=== PATIENT | female | born 1940 | race Caucasian/White ===

== ENCOUNTER 2016-10-21 14:27 | Emergency (ER) | payer MEDICARE, MEDICAID ==
[2016-10-21] MEDS ORDERED: OXYCODONE-ACETAMINOPHEN 5-325 MG TABLET PO ONE (15:02)
--- NOTE | 2016-10-21 15:56 | RADIOLOGY REPORT (SQ) ---
EXAM DESCRIPTION: HIP RIGHT AP/LATERAL COMPLETED DATE/TIME: 10/21/2016 3:45 pm REASON FOR STUDY: pain COMPARISON: None. NUMBER OF VIEWS: Two views. TECHNIQUE: AP pelvis and additional frog-leg view of the right hip. LIMITATIONS: None. FINDINGS: MINERALIZATION: Osteopenia. RIGHT HIP: Mild narrowing of the joint space. No significant osteophyte formation. No subchondral c ysts. LEFT HIP: No fracture or dislocation. No worrisome bone lesions. PUBIS AND ISCHIUM: No fracture. PELVIS: No fracture. SACRUM: There is mild sclerosis of the right sacroiliac joint. LOWER LUMBAR SPINE: Mild degenerative disc changes are seen in the lower lumbar spine. SOFT TISSUES: No findings. OTHER: No other significant finding. IMPRESSION: Mild degenerative joint changes in the right hip and in the sacroiliac joint. Mild dege nerative disc changes in the lower lumbar spine. TECHNICAL DOCUMENTATION: JOB ID: [id number] [employer]- All Rights Reserved
--- NOTE | 2016-10-21 16:12 | ER Document Report ---
ED General - General Chief Complaint: Leg Pain Stated Complaint: LEG PAIN Time Seen by Provider: 10/21/16 14:38 Mode of Arrival: Medic Information source: Patient Notes: 76-year-old female presents with complaints of right hip pain. Patient denies any fevers or chills denies any trauma patient notes it hurts when she tries to ambulate TRAVEL OUTSIDE OF THE [place] IN LAST 30 DAYS: No - HPI Onset: Just prior to arrival Onset/Duration: Sudden Quality of pain: Achy Severity: Mild Pain Level: 1 Associated symptoms: Body/muscle aches Exacerbated by: Movement Relieved by: Denies Similar symptoms previously: No Recently seen / treated by doctor: No - Related Data Allergies/Adverse Reactions: latex Allergy (Intermediate, Verified 10/21/16 14:42) Rash with itching Adhesive Tape Adverse Reaction (Severe, Uncoded 10/21/16 14:42) Severe Rash with Itching (Scarred) Past Medical History - Social History Smoking Status: Never Smoker Cigarette use (# per day): No Chew tobacco use (# tins/day): No Smoking Education Provided: No Frequency of alcohol use: None Drug Abuse: None Family History: Reviewed & Not Pertinent - Past Medical History Cardiac Medical History: Reports: Hx Hypercholesterolemia Denies: Hx Atrial Fibrillation, Hx Congestive Heart Failure, Hx Coronary Artery Disease, Hx Heart Attack, Hx Hypertension, Hx Peripheral Vascular Disease , Hx Heart Murmur Pulmonary Medical History: Denies: Hx Asthma, Hx Bronchitis, Hx COPD, Hx Pneumonia, Hx Tuberculosis Neurological Medical History: Denies: Hx Cerebrovascular Accident, Hx Seizures Endocrine Medical History: Reports: Hx Diabetes Mellitus Type 2. Denies: Hx Graves' Disease, Hx Hyperthyroidism, Hx Hypothyroidism GI Medical History: Denies: Hx Hepatitis, Hx Hiatal Hernia, Hx Ulcer Musculoskeltal Medical History: Reports Hx Arthritis - Spinal, Denies Hx Fibromyalgia, Denies Hx Muscular Dystrophy Traumatic Medical History: Denies: Hx Fractures Infectious Medical History: Denies: Hx Hepatitis Past Surgical History: Reports: Hx Cardiac Surgery - open heart, Hx Hysterectomy , Hx Tonsillectomy. Denies: Hx Appendectomy, Hx Bowel Surgery, Hx Section, Hx Cholecystectomy, Hx Coronary Artery Bypass Graft, Hx Gastric Bypass Surgery, Hx Herniorrhaphy, Hx Mastectomy, Hx Open Heart Surgery, Hx Pacemaker, Hx Tubal Ligation - Immunizations Hx Diphtheria, Pertussis, Tetanus Vaccination: Yes Hx Pneumococcal Vaccination: 05/29/11 Review of Systems - Review of Systems Notes: PHYSICAL EXAMINATION: GENERAL: Well-appearing, well-nourished and in no acute distress. HEAD: Atraumatic, normocephalic. EYES: Pupils equal round and reactive to light, extraocular movements intact, conjunctiva are normal. ENT: Nares patent, oropharynx clear without exudates. Moist mucous membranes. NECK: Normal range of motion, supple without lymphadenopathy LUNGS: Breath sounds clear to auscultation bilaterally and equal. No wheezes rales or rhonchi. HEART: Regular rate and rhythm without murmurs ABDOMEN: Soft, nontender, nondistended abdomen. No guarding, no rebound. No masses appreciated. Female : deferred Musculoskeletal: Left hip normal range of motion right hip mild achiness NEUROLOGICAL: Cranial nerves grossly intact. Normal speech, normal gait. Normal sensory, motor exams PSYCH: Normal mood, normal affect. SKIN: Warm, Dry, normal turgor, no rashes or lesions noted. Physical Exam - Vital signs Vitals: Temp Pulse Resp BP Pulse Ox 98.5 F 62 18 120/51 L 92 10/21/16 14:40 10/21/16 14:40 10/21/16 14:40 10/21/16 14:40 10/21/16 14:40 Course - Re-evaluation Re-evalutation: 10/21/16 16:10 Physical examination notes no obvious deformity pulses are intact. Patient is insistent that it is in the joint space no other injury. Patient denies any other concerns x-ray notes mild degenerative changes patient will be given follow-up with orthopedics and is otherwise stable - Vital Signs Vital signs: Temp Pulse Resp BP Pulse Ox 98.5 F 62 18 120/51 L 92 10/21/16 14:40 10/21/16 14:40 10/21/16 14:40 10/21/16 14:40 10/21/16 14:40 - Diagnostic Test Radiology reviewed: Image reviewed, Reports reviewed - right hip pain Discharge - Discharge Clinical Impression: Hip pain, right Condition: Stable Disposition: HOME, SELF-CARE Instructions: Contusion ([facility]) Prescriptions: Hydrocodone/Acetaminophen [[place] 5-325 mg Tablet] 1 tab PO Q6 #20 tablet Referrals: MARIELLE SORENSON MD [ACTIVE STAFF] - Follow up tomorrow
[2016-10-21 17:03] VITALS: BP 117/52
== END 2016-10-21 18:16 | disposition home or self-care (01) ==
LOC: ER 14:27
DX: M25.551 Pain in right hip (principal)
CPT/HCPCS: 99283; 73502; A9270

== ENCOUNTER 2017-06-17 23:54 | Inpatient (IN) | payer MEDICARE, MEDICAID ==
--- NOTE | 2017-06-18 00:27 | ER Document Report ---
ED Respiratory Problem - General Chief Complaint: Cough Stated Complaint: CHEST CONGESTION Time Seen by Provider: 06/18/17 00:09 Notes: The patient is a 76-year-old female who presents from [facility] with 1 week of cough and chest congestion. She does not wear oxygen at her [facility]. She denies hemoptysis, chest pain, leg swelling, nausea, vomiting , back pain, fevers, abdominal pain or headache. TRAVEL OUTSIDE OF THE [place] IN LAST 30 DAYS: No - Related Data Allergies/Adverse Reactions: latex Allergy (Intermediate, Verified 10/21/16 14:42) Rash with itching Adhesive Tape Adverse Reaction (Severe, Uncoded 10/21/16 14:42) Severe Rash with Itching (Scarred) Past Medical History - General Information source: Patient - Social History Smoking Status: Unknown if Ever Smoked Family History: Reviewed & Not Pertinent - Past Medical History Cardiac Medical History: Reports: Hx Hypercholesterolemia Denies: Hx Atrial Fibrillation, Hx Congestive Heart Failure, Hx Coronary Artery Disease, Hx Heart Attack, Hx Hypertension, Hx Peripheral Vascular Disease , Hx Heart Murmur Pulmonary Medical History: Denies: Hx Asthma, Hx Bronchitis, Hx COPD, Hx Pneumonia, Hx Tuberculosis Neurological Medical History: Denies: Hx Cerebrovascular Accident, Hx Seizures Endocrine Medical History: Reports: Hx Diabetes Mellitus Type 2. Denies: Hx Graves' Disease, Hx Hyperthyroidism, Hx Hypothyroidism GI Medical History: Denies: Hx Hepatitis, Hx Hiatal Hernia, Hx Ulcer Musculoskeltal Medical History: Reports Hx Arthritis - Spinal, Denies Hx Fibromyalgia, Denies Hx Muscular Dystrophy Traumatic Medical History: Denies: Hx Fractures Infectious Medical History: Denies: Hx Hepatitis Past Surgical History: Reports: Hx Cardiac Surgery - open heart, Hx Hysterectomy , Hx Tonsillectomy. Denies: Hx Appendectomy, Hx Bowel Surgery, Hx Section, Hx Cholecystectomy, Hx Coronary Artery Bypass Graft, Hx Gastric Bypass Surgery, Hx Herniorrhaphy, Hx Mastectomy, Hx Open Heart Surgery, Hx Pacemaker, Hx Tubal Ligation - Immunizations Hx Diphtheria, Pertussis, Tetanus Vaccination: Yes Hx Pneumococcal Vaccination: 05/29/11 Review of Systems - Review of Systems Notes: REVIEW OF SYSTEMS: CONSTITUTIONAL: -fevers, -chills EENT: -eye pain, -difficulty swallowing, -nasal congestion CARDIOVASCULAR: -chest pain, -syncope. RESPIRATORY: +cough, +SOB GASTROINTESTINAL: -abdominal pain, -nausea, -vomiting, -diarrhea GENITOURINARY: -dysuria, -hematuria MUSCULOSKELETAL: -back pain, -neck pain SKIN: -rash or skin lesions. HEMATOLOGIC: -easy bruising or bleeding. LYMPHATIC: -swollen, enlarged glands. NEUROLOGICAL: -altered mental status or loss of consciousness, -headache, - neurologic symptoms PSYCHIATRIC: -anxiety, -depression. ALL OTHER SYSTEMS REVIEWED AND NEGATIVE. Physical Exam - Vital signs Vitals: Pulse Ox 95 06/18/17 00:04 - Notes Notes: PHYSICAL EXAMINATION: GENERAL: Well-appearing, well-nourished and in no acute distress. HEAD: Atraumatic, normocephalic. EYES: Pupils equal round and reactive to light, extraocular movements intact, sclera anicteric, conjunctiva are normal. ENT: nares patent, oropharynx clear without exudates. Moist mucous membranes. NECK: Normal range of motion, supple without lymphadenopathy LUNGS: Diffuse wheezing. Mild tachypnea. HEART: Regular rate and rhythm without murmurs ABDOMEN: Soft, nontender, normoactive bowel sounds. No guarding, no rebound. No masses appreciated. EXTREMITIES: Normal range of motion, no pitting or edema. No cyanosis. NEUROLOGICAL: Cranial nerves grossly intact. Normal speech, normal gait. Normal sensory and motor exams. PSYCH: Normal mood, normal affect. SKIN: Warm, Dry, normal turgor, no rashes or lesions noted. Course - Re-evaluation Re-evalutation: Patient presents with 1 week of chest congestion, productive cough and feeling short of breath. She was noticed to be 70% by EMS on room air and she does not wear oxygen at home. On 4 L nasal cannula, her oxygenation improves to 94%. Chest x-ray does not show any acute findings, so CTA was completed to assess for possibility of PE. CTA did not show any evidence of a PE or any other acute findings. After 3 duonebs and steroids, her wheezing resolved and her shortness of breath improved, but she remained hypoxic down to the low 80% on room air while at rest. She requires inpatient admission for further evaluation and treatment of her hypoxia and bronchitis. She said her primary care physician is Dr. Dash. 06/18/17 05:[address] Ruiz who is covering for Dr. Dash. Left messages for callback. 06/18/17 06:[address] Ruiz and he will admit patient to [facility] as Inpatient. - Vital Signs Vital signs: Temp Pulse Resp BP Pulse Ox 98.2 F 14 110/79 97 06/18/17 00:59 06/18/17 05:00 06/18/17 01:07 06/18/17 05:00 - Laboratory Result Diagrams: 06/18/17 00:25 06/18/17 00:25 Laboratory results interpreted by me: 06/18/17 06/18/17 06/18/17 00:25 00:25 00:25 Hgb 11.8 L Eosinophils % (Manual) 11 H Absolute Eos (Manual) 0.9 H VBG pCO2 VBG HCO3 Carbon Dioxide 37 H Lactic Acid 0.6 L Total Bilirubin < 0.1 L Total Protein 6.0 L 06/18/17 00:25 Hgb Eosinophils % (Manual) Absolute Eos (Manual) VBG pCO2 66.5 H* VBG HCO3 36.4 H Carbon Dioxide Lactic Acid Total Bilirubin Total Protein - Diagnostic Test Radiology reviewed: Image reviewed, Reports reviewed Radiology results interpreted by me: CXR: NAD CTA: No PE. NAD. - EKG Interpretation by Me EKG shows normal: Sinus rhythm, [place], Intervals, QRS Complexes, ST-T Waves Rate: Normal Discharge - Discharge Clinical Impression: Hypoxia, Bronchitis Condition: Stable Disposition: ADMITTED INPATIENT Admitting Provider: Sara Unit Admitted: Telemetry
[2017-06-18] MEDS ORDERED: IPRATROPIUM/ALBUTEROL 0.5-2.5 MG/3 ML AMPUL NEB ONE ×2 (00:35→03:25)
[2017-06-18 00:51] LABS: HEMATOCRIT 36.2 % (36.0-47.0); HEMOGLOBIN 11.8 g/dL (12.0-15.5); MEAN CORPUSCULAR HGB CONC 32.6 g/dL (32.0-36.0); MEAN CORPUSCULAR VOLUME 92 fl (80-97); PLATELET COUNT 216 10^3/uL (150-450); RED BLOOD COUNT 3.93 10^6/uL (3.72-5.28); RED CELL DISTRIBUTION WIDTH 13.7 % (11.5-14.0)
[2017-06-18 01:10] LABS: ALANINE AMINOTRANSFERASE 28 U/L (9-52); ALBUMIN 3.8 g/dL (3.5-5.0); ALKALINE PHOSPHATASE 69 U/L (38-126); ANION GAP 5 (5-19); ASPARTATE AMINO TRANSFERASE 20 U/L (14-36); BLOOD UREA NITROGEN 15 mg/dL (7-20); CALCIUM 8.7 mg/dL (8.4-10.2); CARBON DIOXIDE 37 mmol/L (22-30); CHLORIDE 98 mmol/L (98-107); GLUCOSE 102 mg/dL (75-110); POTASSIUM 4.4 mmol/L (3.6-5.0); SODIUM 140.3 mmol/L (137-145)
[2017-06-18 01:11] LABS: BILIRUBIN,TOTAL < 0.1 mg/dL (0.2-1.3)
[2017-06-18 01:15] LABS: VENOUS BLOOD BASE EXCESS 8.6 mmol/L; VENOUS BLOOD HCO3 36.4 mmol/L (20-32); VENOUS BLOOD PH 7.36 (7.30-7.42)
[2017-06-18 01:16] LABS: VENOUS BLOOD PCO2 66.5 mmHg (35-63)
[2017-06-18 01:18] LABS: ABSOLUTE LYMPHOCYTES# (MANUAL) 1.9 10^3/uL (0.5-4.7); ABSOLUTE MONOCYTES # (MANUAL) 0.6 10^3/uL (0.1-1.4); ABSOLUTE NEUTROPHILS# (MANUAL) 4.5 10^3/uL (1.7-8.2); BASOPHILS % (MANUAL) 1 % (0-2); EOSINOPHILS % (MANUAL) 11 % (0-6); LYMPHOCYTES % (MANUAL) 24 % (13-45); MONOCYTES % (MANUAL) 8 % (3-13); SEGMENTED NEUTROPHILS % (MAN) 56 % (42-78); TOTAL CELLS COUNTED 100
--- NOTE | 2017-06-18 01:19 | RADIOLOGY REPORT (SQ) ---
EXAM DESCRIPTION: CHEST PA/LAT CLINICAL HISTORY: 76 years, Female, cough COMPARISON: 09/18/2015, report only. CT, abdomen pelvis, 11/02/2014, report only. CT, chest, report only, 09/21/2015. NUMBER OF VIEWS: Three LIMITATIONS: None. FINDINGS: Moderate elevation right hemidiaphragm, less low right lung volume, expanded left lung volume, moderate hiatal hernia pattern consistent with prior CT report, 11/02/2014, atherosclerosis, normal cardiac silhouette size, calcified right hilar granulomata, and intact bony thorax. IMPRESSION: No acute cardiopulmonary findings. 2010 [employer]- All Rights Reserved
[2017-06-18 01:20] LABS: ANISOCYTOSIS SLIGHT; HYPOCHROMASIA SLIGHT; PLATELET COMMENT ADEQUATE; PLATELET LARGE PRESENT
--- NOTE | 2017-06-18 02:42 | RADIOLOGY REPORT (SQ) ---
EXAM DESCRIPTION: CTA CHEST CLINICAL HISTORY: 76 years Female, hypoxia, SOB COMPARISON: 09/21/2015. TECHNIQUE: 69 mL Isovue-370 IV contrast. Multiplanar reformatted. This exam was performed according to our departmental dose-optimization program, which includes automated exposure control, adjustment of the mA and/or kV according to patient size and/or use of iterative reconstruction technique. FINDINGS: No acute cardiopulmonary findings. No pulmonary embolus. No right ventricular strain. Moderate chronic elevation of the right hemidiaphragm, moderate hiatal hernia, moderate coronary arterial calcification stenting, sternotomy, old granulomatous disease includes a calcified 2.3 cm precarinal lymph node, calcified granulomata of the spleen. Mild chronic interstitial lung disease. Small scattered subsegmental atelectasis-scar. Inferior neck, axillae, airway, heart, vasculature, upper abdomen, and musculoskeleton appear otherwise unremarkable. IMPRESSION: No acute cardiopulmonary findings. No pulmonary embolus. Moderate hiatal hernia. Chronic elevation of the right hemidiaphragm.
[2017-06-18 03:01] LABS: A TYPE INFLUENZA AG NEGATIVE (NEGATIVE); B INFLUENZA AG NEGATIVE (NEGATIVE)
[2017-06-18] MEDS ORDERED: METHYLPREDNISOLONE INJ 125 MG/2 ML SDV IV ONE (03:22)
[2017-06-18] MEDS: ALBUTEROL SULFATE 0.083% NEB 2.5 MG/3 ML AMPUL NEB SCH ×2 (06:30→08:51)
--- NOTE | 2017-06-18 11:39 | PDOC H&P ---
History of Present Illness Admission Date/PCP: 06/18/17 06:36 Patient complains of: Difficulty with breathing History of Present Illness: DERIC GIANG is a 76 year old female patient of Dr Dash who presented to the ED from [facility] with several days of worsening productive cough. Patient reported sputum as yellowish in color. She reported associated fever and chills. No associated chest pain, palpitation, hemoptysis. She reported nasal and sinus congestion with difficulty laying flat and associated wheezing. There is longstanding history of obstructive and possible restrictive lung disease. She denied any history of asthma or cigarette smoking. She denied any headache or dizziness. No nausea, vomiting, or abdominal pain. No leg swelling, dysuria, hematuria or flank pain. Her initial assessment in the ED was remarkable for respiratory distress. She reported significant improvement after administration of bronchodilators. Her morbidities include Hyperlipidemia, Diabetes Mellitus Type 2, and osteoarthritis. Past Medical History Cardiac Medical History: Reports: Hyperlipidema Denies: Atrial Fibrillation, Congestive Heart Failure, Coronary Artery Disease, Myocardial Infarction, Hypertension, Peripheral Vascular Disease, Heart Murmur Pulmonary Medical History: Reports: Chronic Obstructive Pulmonary Disease (COPD) Denies: Asthma, Bronchitis, Pneumonia, Tuberculosis Neurological Medical History: Denies: Seizures Endocrine Medical History: Reports: Diabetes Mellitus Type 2 Denies: Hyperthyroidism, Hypothyroidism GI Medical History: Denies: Hepatitis, Hiatal Hernia Musculoskeltal Medical History: Reports: Arthritis - Spinal Denies: Fibromyalgia Psychiatric Medical History: Reports: Dementia Hematology: Denies: Anemia, Sickle Cell Disease Past Surgical History Past Surgical History: Reports: Hysterectomy, Tonsillectomy Denies: Amputation, Appendectomy, Section, Cholecystectomy, Coronary Artery Bypass Graft, Gastric Bypass Surgery, Herniorrhaphy, Mastectomy , Pacemaker, Tubal Ligation Social History Smoking Status: Unknown if Ever Smoked Frequency of Alcohol Use: None Hx Recreational Drug Use: No Drugs: None Hx Prescription Drug Abuse: No Family History Family History: Reviewed & Not Pertinent Parental Family History Reviewed: Yes Children Family History Reviewed: Yes Sibling(s) Family History Reviewed.: Yes Medication/Allergy Allergies/Adverse Reactions: latex Allergy (Intermediate, Verified 10/21/16 14:42) Rash with itching Adhesive Tape Adverse Reaction (Severe, Uncoded 10/21/16 14:42) Severe Rash with Itching (Scarred) Review of Systems All systems: reviewed and no additional remarkable complaints except as stated Physical Exam Vital Signs: Temp Pulse Resp BP Pulse Ox 98.2 F 15 110/79 95 06/18/17 00:59 06/18/17 09:00 06/18/17 01:07 06/18/17 09:00 Intake & Output 06/17/17 06/18/17 06/19/17 06:59 06:59 06:59 Weight 70.307 kg General appearance: PRESENT: no acute distress, well-developed, well-nourished Head exam: PRESENT: atraumatic, normocephalic Eye exam: PRESENT: conjunctiva pink, EOMI, PERRLA. ABSENT: scleral icterus Ear exam: PRESENT: normal external ear exam Mouth exam: PRESENT: moist, tongue midline Neck exam: PRESENT: full ROM. ABSENT: carotid bruit, JVD, lymphadenopathy, thyromegaly Respiratory exam: PRESENT: decreased breath sounds - at lung bases, rhonchi, wheezes Cardiovascular exam: PRESENT: RRR. ABSENT: diastolic murmur, rubs, systolic murmur Vascular exam: PRESENT: normal capillary refill. ABSENT: pallor GI/Abdominal exam: PRESENT: normal bowel sounds, soft. ABSENT: distended, guarding, mass, organolmegaly, rebound, tenderness Rectal exam: PRESENT: deferred Musculoskeletal exam: PRESENT: normal inspection. ABSENT: tenderness Neurological exam: PRESENT: alert, awake, oriented to person, oriented to place , oriented to time, oriented to situation, CN II-XII grossly intact. ABSENT: motor sensory deficit Psychiatric exam: PRESENT: appropriate affect, normal mood. ABSENT: homicidal ideation, suicidal ideation Skin exam: PRESENT: dry, intact, warm. ABSENT: cyanosis, rash Results Laboratory Results: I reviewed her lab results on [place] and form significant part of my medical decision making. Impressions: Chest X-Ray 06/18/17 00:07 IMPRESSION: No acute cardiopulmonary findings. 2010 [employer]- All Rights Reserved Chest/Abdomen CTA 06/18/17 01:26 IMPRESSION: No acute cardiopulmonary findings. No pulmonary embolus. Moderate hiatal hernia. Chronic elevation of the right hemidiaphragm. Assessment & Plan - Diagnosis (1) Acute exacerbation of chronic obstructive pulmonary disease (COPD) Is this a current diagnosis for this admission?: Yes Plan: See admitting covering physician orders. (2) Bronchitis Is this a current diagnosis for this admission?: Yes Plan: See admitting covering physician orders. (3) Seasonal allergic rhinitis Qualifiers: Allergic rhinitis trigger: unspecified Qualified Code(s): J30.2 - Other seasonal allergic rhinitis Is this a current diagnosis for this admission?: Yes Plan: See admitting covering physician orders. - Time Time Spent: 50 to 70 Minutes Medications reviewed and adjusted accordingly: Yes Anticipated discharge: Other - MAMIE Within: Other - Inpatient Certification Based on my medical assessment, after consideration of the patient's comorbidities, presenting symptoms, or acuity I expect that the services needed warrant INPATIENT care.: Yes I certify that my determination is in accordance with my understanding of Medicare's requirements for reasonable and necessary INPATIENT services [42 CFR 412.3e].: Yes Medical Necessity: Need Close Monitoring Due to Risk of Patient Decompensation, Need For IV Fluids, Need For Continuous Telemetry Monitoring, Need for Nebulizer Therapy and Monitoring of Response, Risk of Complication if Not Cared For in Hospital Post Hospital Care: D/C or Transfer Summary - Plan Summary Plan Summary: See admitting covering physician orders.
[2017-06-18] MEDS: NORMAL SALINE 1000 ML 1,000 ML IV PRN (12:36)
[2017-06-18] MEDS: METHYLPREDNISOLONE INJ 125 MG/2 ML SDV IV SCH ×2 (13:17→22:17)
[2017-06-18 14:17] LABS: INTERNATIONAL RATION (INR) 0.92
[2017-06-18 14:18] LABS: PARTIAL THROMBOPLASTIN TIME 28.4 SEC (23.5-35.8)
--- NOTE | 2017-06-18 19:38 | EKG REPORT ---
SEVERITY:- ABNORMAL ECG - SINUS RHYTHM PROBABLE LEFT ATRIAL ABNORMALITY PROBABLE ANTEROSEPTAL INFARCT, AGE INDETERM : Confirmed by: Sanjuana James 18-Jun-2017 19:38:20
[2017-06-18] MEDS: ACETAMINOPHEN 325 MG TABLET PO PRN (22:16)
[2017-06-18] MEDS: IPRATROPIUM/ALBUTEROL 0.5-2.5 MG/3 ML AMPUL NEB PRN (23:51)
[2017-06-19 04:43] LABS: ABSOLUTE LYMPHOCYTES (AUTO) 2.7 10^3/uL (0.5-4.7); ABSOLUTE MONOCYTES (AUTO) 0.3 10^3/uL (0.1-1.4); ABSOLUTE NEUT (AUTO) 10.9 10^3/uL (1.7-8.2); BASOPHILS % (AUTO) 0.2 % (0-2); EOSINOPHILS % (AUTO) 0.1 % (0-6); HEMOGLOBIN 11.2 g/dL (12.0-15.5); LYMPHOCYTES % (AUTO) 19.4 % (13-45); MEAN CORPUSCULAR HEMOGLOBIN 30.3 pg (27.0-33.4); MEAN CORPUSCULAR VOLUME 92 fl (80-97); MONOCYTES % (AUTO) 1.8 % (3-13); PLATELET COUNT 205 10^3/uL (150-450); RED CELL DISTRIBUTION WIDTH 13.6 % (11.5-14.0); SEGMENTED NEUTROPHILS % (AUTO) 78.5 % (42-78); TOTAL CELLS COUNTED % (AUTO) 100 %; WHITE BLOOD COUNT 13.9 10^3/uL (4.0-10.5)
[2017-06-19] MEDS: LANSOPRAZOLE 30 MG TAB.RAP.DR PO SCH (05:41)
[2017-06-19] MEDS: METHYLPREDNISOLONE INJ 125 MG/2 ML SDV IV SCH ×3 (05:41→21:39)
[2017-06-19 06:56] LABS: ALANINE AMINOTRANSFERASE 26 U/L (9-52); ALBUMIN 3.3 g/dL (3.5-5.0); ALKALINE PHOSPHATASE 51 U/L (38-126); ANION GAP 6 (5-19); ASPARTATE AMINO TRANSFERASE 16 U/L (14-36); BILIRUBIN,DIRECT 0.2 mg/dL (0.0-0.4); BILIRUBIN,TOTAL 0.2 mg/dL (0.2-1.3); BLOOD UREA NITROGEN 21 mg/dL (7-20); CALCIUM 8.6 mg/dL (8.4-10.2); CARBON DIOXIDE 30 mmol/L (22-30); CHLORIDE 102 mmol/L (98-107); GLUCOSE 151 mg/dL (75-110); POTASSIUM 4.4 mmol/L (3.6-5.0); SODIUM 138.4 mmol/L (137-145); TOTAL PROTEIN 5.4 g/dL (6.3-8.2)
[2017-06-19] MEDS: ENOXAPARIN SODIUM INJ 40 MG/0.4 ML DISP.SYRIN SUBCUT SCH (11:21)
[2017-06-19] MEDS: CETIRIZINE 5 MG TABLET PO SCH (11:22)
[2017-06-19] MEDS: ACETAMINOPHEN 325 MG TABLET PO PRN ×3 (11:27→21:39)
[2017-06-19] MEDS: NORMAL SALINE 1000 ML 1,000 ML IV PRN (18:38)
[2017-06-19] MEDS: IPRATROPIUM/ALBUTEROL 0.5-2.5 MG/3 ML AMPUL NEB PRN (22:19)
[2017-06-20] MEDS: ACETAMINOPHEN 325 MG TABLET PO PRN ×4 (04:10→21:41)
[2017-06-20] MEDS: METHYLPREDNISOLONE INJ 125 MG/2 ML SDV IV SCH ×3 (07:03→21:36)
[2017-06-20] MEDS: LANSOPRAZOLE 30 MG TAB.RAP.DR PO SCH (07:03)
[2017-06-20] MEDS: CETIRIZINE 5 MG TABLET PO SCH (11:47)
[2017-06-20] MEDS: ENOXAPARIN SODIUM INJ 40 MG/0.4 ML DISP.SYRIN SUBCUT SCH (11:47)
[2017-06-20] MEDS: IPRATROPIUM/ALBUTEROL 0.5-2.5 MG/3 ML AMPUL NEB PRN ×2 (11:53→16:34)
[2017-06-20] MEDS: NORMAL SALINE 1000 ML 1,000 ML IV PRN (14:38)
[2017-06-20] MEDS ORDERED: ACETAMINOPHEN 325 MG TABLET PO PRN (21:40)
[2017-06-21] MEDS: METHYLPREDNISOLONE INJ 125 MG/2 ML SDV IV SCH ×3 (05:59→21:11)
[2017-06-21] MEDS: NORMAL SALINE 1000 ML 1,000 ML IV PRN (06:00)
[2017-06-21] MEDS: LANSOPRAZOLE 30 MG TAB.RAP.DR PO SCH (06:00)
[2017-06-21] MEDS: IPRATROPIUM/ALBUTEROL 0.5-2.5 MG/3 ML AMPUL NEB PRN ×2 (09:45→14:22)
[2017-06-21] MEDS: ENOXAPARIN SODIUM INJ 40 MG/0.4 ML DISP.SYRIN SUBCUT SCH (10:08)
[2017-06-21] MEDS: CETIRIZINE 5 MG TABLET PO SCH (10:09)
[2017-06-22] MEDS: LANSOPRAZOLE 30 MG TAB.RAP.DR PO SCH (05:52)
[2017-06-22] MEDS: METHYLPREDNISOLONE INJ 125 MG/2 ML SDV IV SCH ×2 (05:52→13:57)
[2017-06-22] MEDS: IPRATROPIUM/ALBUTEROL 0.5-2.5 MG/3 ML AMPUL NEB PRN ×3 (08:00→23:40)
[2017-06-22] MEDS: ENOXAPARIN SODIUM INJ 40 MG/0.4 ML DISP.SYRIN SUBCUT SCH (09:41)
[2017-06-22] MEDS: CETIRIZINE 5 MG TABLET PO SCH (09:42)
[2017-06-22] MEDS ORDERED: BENZONATATE 100 MG CAPSULE PO PRN (21:57)
[2017-06-22] MEDS ORDERED: TRAZODONE HCL 50 MG TABLET PO PRN (21:57)
[2017-06-22] MEDS ORDERED: NORMAL SALINE 1000 ML 1,000 ML IV PRN (22:01)
--- NOTE | 2017-06-22 22:04 | PDOC PROGRESS REPORT ---
Subjective Progress Note for:: 06/22/17 Subjective:: Patient was admitted for the management of acute COPD exacerbation, she was seen by the bedside, she has improved, Reason For Visit: ACUTE EXACERBATED COPD,BRONCHITIS,SEASONAL Physical Exam Vital Signs: Temp Pulse Resp BP Pulse Ox 98.3 F 71 20 76/40 L 97 06/22/17 16:06 06/22/17 20:10 06/22/17 20:10 06/22/17 16:06 06/22/17 16:06 Intake & Output 06/21/17 06/22/17 06/23/17 06:59 06:59 06:59 Intake Total 2035 3085 1200 Output Total 750 750 350 Balance 1285 2335 850 Weight 78.1 kg General appearance: PRESENT: no acute distress Head exam: PRESENT: atraumatic, normocephalic Respiratory exam: PRESENT: wheezes Cardiovascular exam: PRESENT: RRR, +S1, +S2 Vascular exam: PRESENT: normal capillary refill GI/Abdominal exam: PRESENT: normal bowel sounds, soft Rectal exam: PRESENT: deferred Neurological exam: PRESENT: alert Psychiatric exam: PRESENT: appropriate affect, normal mood Skin exam: PRESENT: dry, intact, warm Results Laboratory Results: 06/19/17 04:30 06/19/17 06:32 Impressions: Chest X-Ray 06/18/17 00:07 IMPRESSION: No acute cardiopulmonary findings. [address] [place], [place] [address]- All Rights Reserved Chest/Abdomen CTA 06/18/17 01:26 IMPRESSION: No acute cardiopulmonary findings. No pulmonary embolus. Moderate hiatal hernia. Chronic elevation of the right hemidiaphragm. Assessment & Plan - Diagnosis (1) Acute exacerbation of chronic obstructive pulmonary disease (COPD) Is this a current diagnosis for this admission?: Yes Plan: The IV Solu-Medrol will be discontinued, start p.o. prednisone (2) Hypoxia Is this a current diagnosis for this admission?: Yes
[2017-06-22] MEDS ORDERED: ONDANSETRON 4 MG TAB.RAPDIS PO PRN (22:30)
[2017-06-22] MEDS: ACETAMINOPHEN 325 MG TABLET PO SCH (22:59)
[2017-06-22 23:03] LABS: ABSOLUTE MONOCYTES (AUTO) 0.7 10^3/uL (0.1-1.4); ABSOLUTE NEUT (AUTO) 7.7 10^3/uL (1.7-8.2); BASOPHILS % (AUTO) 0.1 % (0-2); EOSINOPHILS % (AUTO) 0.1 % (0-6); HEMATOCRIT 34.8 % (36.0-47.0); HEMOGLOBIN 11.3 g/dL (12.0-15.5); MEAN CORPUSCULAR HEMOGLOBIN 29.8 pg (27.0-33.4); MEAN CORPUSCULAR HGB CONC 32.4 g/dL (32.0-36.0); MEAN CORPUSCULAR VOLUME 92 fl (80-97); PLATELET COUNT 213 10^3/uL (150-450); RED BLOOD COUNT 3.79 10^6/uL (3.72-5.28); RED CELL DISTRIBUTION WIDTH 13.6 % (11.5-14.0); SEGMENTED NEUTROPHILS % (AUTO) 57.8 % (42-78); TOTAL CELLS COUNTED % (AUTO) 100 %; WHITE BLOOD COUNT 13.4 10^3/uL (4.0-10.5)
[2017-06-22 23:30] LABS: ALANINE AMINOTRANSFERASE 47 U/L (9-52); ALBUMIN 3.2 g/dL (3.5-5.0); ALKALINE PHOSPHATASE 46 U/L (38-126); ASPARTATE AMINO TRANSFERASE 20 U/L (14-36); BILIRUBIN,DIRECT 0.2 mg/dL (0.0-0.4); BILIRUBIN,TOTAL 0.3 mg/dL (0.2-1.3); BLOOD UREA NITROGEN 22 mg/dL (7-20); CALCIUM 8.1 mg/dL (8.4-10.2); CARBON DIOXIDE 30 mmol/L (22-30); CHLORIDE 104 mmol/L (98-107); GLUCOSE 150 mg/dL (75-110); TOTAL PROTEIN 5.1 g/dL (6.3-8.2)
[2017-06-22 23:40] LABS: SODIUM 137.6 mmol/L (137-145)
[2017-06-22 23:43] LABS: ANION GAP 4 (5-19)
[2017-06-23] MEDS: LANSOPRAZOLE 30 MG TAB.RAP.DR PO SCH ×2 (06:35)
[2017-06-23] MEDS: IPRATROPIUM/ALBUTEROL 0.5-2.5 MG/3 ML AMPUL NEB PRN ×2 (09:22→19:18)
[2017-06-23] MEDS: ENOXAPARIN SODIUM INJ 40 MG/0.4 ML DISP.SYRIN SUBCUT SCH (10:54)
[2017-06-23] MEDS: CALCIUM CARBONATE 250 MG/VITAMIN D3 125 UNIT TABLET PO SCH ×2 (10:55→17:03)
[2017-06-23] MEDS: ACETAMINOPHEN 325 MG TABLET PO SCH ×2 (10:56→21:59)
[2017-06-23] MEDS: PREDNISONE 20 MG TABLET PO SCH (10:56)
[2017-06-23] MEDS: CITALOPRAM HYDROBROMIDE 20 MG TABLET PO SCH (10:57)
[2017-06-23] MEDS: CETIRIZINE 5 MG TABLET PO SCH (10:57)
[2017-06-23] MEDS: LORATADINE 10 MG TABLET PO SCH (10:57)
--- NOTE | 2017-06-23 22:14 | PDOC PROGRESS REPORT ---
Subjective Progress Note for:: 06/23/17 Subjective:: Patient is seen by the bedside she still wheezing Reason For Visit: ACUTE EXACERBATED COPD,BRONCHITIS,SEASONAL Physical Exam Vital Signs: Temp Pulse Resp BP Pulse Ox 97.9 F 87 20 131/53 H 99 06/23/17 20:05 06/23/17 20:05 06/23/17 20:05 06/23/17 20:05 06/23/17 20:05 Intake & Output 06/22/17 06/23/17 06/24/17 06:59 06:59 06:59 Intake Total 3085 1745 0 Output Total 750 1450 Balance 2335 295 2049 Weight 78.1 kg 80.3 kg General appearance: PRESENT: mild distress Head exam: PRESENT: atraumatic, normocephalic Eye exam: PRESENT: conjunctiva pink, EOMI, PERRLA Ear exam: PRESENT: normal external ear exam Mouth exam: PRESENT: moist, tongue midline Neck exam: PRESENT: full ROM Respiratory exam: PRESENT: wheezes Cardiovascular exam: PRESENT: RRR, +S1, +S2 Pulses: PRESENT: normal dorsalis pedis pul, +2 pedal pulses bilateral Vascular exam: PRESENT: normal capillary refill GI/Abdominal exam: PRESENT: normal bowel sounds, soft Rectal exam: PRESENT: deferred Neurological exam: PRESENT: alert Skin exam: PRESENT: dry, intact, warm Results Laboratory Results: 06/22/17 22:30 06/22/17 22:30 06/22/17 06/22/17 22:30 22:30 WBC 13.4 H RBC 3.79 Hgb 11.3 L Hct 34.8 L MCV 92 MCH 29.8 MCHC 32.4 RDW 13.6 Plt Count 213 Seg Neutrophils % 57.8 Lymphocytes % 37.0 Monocytes % 5.0 Eosinophils % 0.1 Basophils % 0.1 Absolute Neutrophils 7.7 Absolute Lymphocytes 5.0 H Absolute Monocytes 0.7 Absolute Eosinophils 0.0 Absolute Basophils 0.0 Sodium 137.6 Potassium 4.0 Chloride 104 Carbon Dioxide 30 Anion Gap 4 L BUN 22 H Creatinine 0.60 Est GFR ( Amer) > 60 Est GFR (Non-Af Amer) > 60 Glucose 150 H Calcium 8.1 L Total Bilirubin 0.3 AST 20 ALT 47 Alkaline Phosphatase 46 Total Protein 5.1 L Albumin 3.2 L Impressions: Chest X-Ray 06/18/17 00:07 IMPRESSION: No acute cardiopulmonary findings. 2010 [employer]- All Rights Reserved Chest/Abdomen CTA 06/18/17 01:26 IMPRESSION: No acute cardiopulmonary findings. No pulmonary embolus. Moderate hiatal hernia. Chronic elevation of the right hemidiaphragm. Assessment & Plan - Diagnosis (1) Acute exacerbation of chronic obstructive pulmonary disease (COPD) Is this a current diagnosis for this admission?: Yes Plan: She is presently on p.o. prednisone 60mg (2) Hypoxia Is this a current diagnosis for this admission?: Yes
[2017-06-24] MEDS: LANSOPRAZOLE 30 MG TAB.RAP.DR PO SCH ×2 (05:13)
[2017-06-24] MEDS: IPRATROPIUM/ALBUTEROL 0.5-2.5 MG/3 ML AMPUL NEB PRN ×2 (06:05→12:21)
[2017-06-24] MEDS: ACETAMINOPHEN 325 MG TABLET PO SCH ×2 (09:42→21:43)
[2017-06-24] MEDS: CALCIUM CARBONATE 250 MG/VITAMIN D3 125 UNIT TABLET PO SCH ×2 (09:42→17:31)
[2017-06-24] MEDS: CETIRIZINE 5 MG TABLET PO SCH (09:42)
[2017-06-24] MEDS: PREDNISONE 20 MG TABLET PO SCH (09:42)
[2017-06-24] MEDS: LORATADINE 10 MG TABLET PO SCH (09:43)
[2017-06-24] MEDS: CITALOPRAM HYDROBROMIDE 20 MG TABLET PO SCH (09:43)
[2017-06-24] MEDS: ENOXAPARIN SODIUM INJ 40 MG/0.4 ML DISP.SYRIN SUBCUT SCH (09:44)
--- NOTE | 2017-06-24 17:52 | PDOC PROGRESS REPORT ---
Subjective Progress Note for:: 06/24/17 Subjective:: Patient was seen by the bedside, on p.o. prednisone, still wheezing but improved Reason For Visit: ACUTE EXACERBATED COPD,BRONCHITIS,SEASONAL Physical Exam Vital Signs: Temp Pulse Resp BP Pulse Ox 97.7 F 75 20 138/61 H 97 06/24/17 16:00 06/24/17 16:00 06/24/17 16:00 06/24/17 16:00 06/24/17 16:00 Intake & Output 06/23/17 06/24/17 06/25/17 06:59 06:59 06:59 Intake Total 1745 2956 Output Total 1450 600 Balance 295 2356 Weight 80.3 kg 81.1 kg General appearance: PRESENT: mild distress Eye exam: PRESENT: PERRLA Neck exam: PRESENT: full ROM Respiratory exam: PRESENT: wheezes Cardiovascular exam: PRESENT: RRR, +S1, +S2 Vascular exam: PRESENT: normal capillary refill GI/Abdominal exam: PRESENT: normal bowel sounds, soft Rectal exam: PRESENT: deferred Neurological exam: PRESENT: alert Psychiatric exam: PRESENT: appropriate affect, normal mood Skin exam: PRESENT: dry, intact, warm Results Laboratory Results: 06/22/17 22:30 06/22/17 22:30 Impressions: Chest X-Ray 06/18/17 00:07 IMPRESSION: No acute cardiopulmonary findings. 2011 [employer] [facility] [employer]- All Rights Reserved Chest/Abdomen CTA 06/18/17 01:26 IMPRESSION: No acute cardiopulmonary findings. No pulmonary embolus. Moderate hiatal hernia. Chronic elevation of the right hemidiaphragm. Assessment & Plan - Diagnosis (1) Acute exacerbation of chronic obstructive pulmonary disease (COPD) Is this a current diagnosis for this admission?: Yes (2) Hypoxia Is this a current diagnosis for this admission?: Yes
[2017-06-25] MEDS: LANSOPRAZOLE 30 MG TAB.RAP.DR PO SCH ×2 (05:04)
[2017-06-25] MEDS: IPRATROPIUM/ALBUTEROL 0.5-2.5 MG/3 ML AMPUL NEB PRN (10:23)
[2017-06-25] MEDS: LORATADINE 10 MG TABLET PO SCH (11:45)
[2017-06-25] MEDS: PREDNISONE 20 MG TABLET PO SCH (11:45)
[2017-06-25] MEDS: CITALOPRAM HYDROBROMIDE 20 MG TABLET PO SCH (11:45)
[2017-06-25] MEDS: CETIRIZINE 5 MG TABLET PO SCH (11:45)
[2017-06-25] MEDS: ENOXAPARIN SODIUM INJ 40 MG/0.4 ML DISP.SYRIN SUBCUT SCH (11:45)
[2017-06-25] MEDS: CALCIUM CARBONATE 250 MG/VITAMIN D3 125 UNIT TABLET PO SCH ×2 (11:46→17:49)
[2017-06-25] MEDS: ACETAMINOPHEN 325 MG TABLET PO SCH (11:46)
[2017-06-25 13:21] VITALS: BP 131/59
--- NOTE | 2017-06-25 13:26 | PDOC TRANSFER SUMMARY ---
General - Admit/Disc Date/PCP Admission Date/Primary Care Provider: 06/18/17 06:36 Discharge Date: 06/25/17 - Discharge Diagnosis (1) Acute exacerbation of chronic obstructive pulmonary disease (COPD) Is this a current diagnosis for this admission?: Yes (2) Hypoxia Is this a current diagnosis for this admission?: Yes - Additional Information Resuscitation Status: Full Code Prescriptions: Budesonide/Formoterol Fumarate [Symbicort Hfa 160-4.5 Mcg Inhaler 6 gm] 2 puff IH Q12 #1 inhaler Prednisone [Deltasone 20 mg Tablet] 60 mg PO DAILY #40 tablet Tiotropium [place] [Spiriva Respimat] 4 gm IH DAILY #12 mist.inhal Home Medications: Acetaminophen [Tylenol 325 mg Tablet] 325 mg PO BID 06/18/17 Acetaminophen [Tylenol 325 mg Tablet] 325 mg PO Q4HP PRN 06/18/17 Albuterol Sulfate [Ventolin Hfa] 2 puff IH QIDP PRN 06/18/17 Azelastine 1 drop OU Q12 06/18/17 Calcium Carbonate/Vitamin D3 [Oyster Shell 250 mg + Vit D Tb] 1 each PO BID Citalopram Hydrobromide [Celexa] 20 mg PO DAILY 06/18/17 Fluticasone Propionate [Flonase Nasal [place] 50 Mcg/[place] 16 gm] 1 spray NASL DAILY 06/18/17 Guaifenesin [Tussin Mucus-Chest Congestion] 10 ml PO Q6HP PRN 06/18/17 Hydrocodone/Acetaminophen [[place] 5-325 mg Tablet] 1 tab PO DAILYP PRN 06/18/17 Loperamide HCl [Anti-Diarrheal] 2 mg PO ASDIR PRN 06/18/17 Magnesium Hydroxide [Milk of Magnesia 30 ml Udcup] 30 ml PO HSP PRN 06/18/17 Ondansetron HCl [Zofran 4 mg Tablet] 1 tab PO Q6HP PRN 06/18/17 Pantoprazole Sodium [Protonix] 40 mg PO Q6AM 06/18/17 Budesonide/Formoterol Fumarate [Symbicort Hfa 160-4.5 Mcg Inhaler 6 gm] 2 puff IH Q12 #1 inhaler 06/25/17 Ipratropium/Albuterol Sulfate [Duoneb 3 ml Ampul] 3 ml NEB RTQ4HP PRN vial.neb 06/25/17 Prednisone [Deltasone 20 mg Tablet] 60 mg PO DAILY #40 tablet 06/25/17 Tiotropium [place] [Spiriva Respimat] 4 gm IH DAILY #12 mist.inhal 06/25/17 Trazodone HCl [Desyrel 50 mg Tablet] 25 mg PO HSP PRN tablet 06/25/17 History of Present Illness Admission Date/PCP: 06/18/17 06:36 History of Present Illness: DERIC GIANG is a 76 year old female patient of Dr Dash who presented to the ED from [facility] with several days of worsening productive cough. Patient reported sputum as yellowish in color. She reported associated fever and chills. No associated chest pain, palpitation, hemoptysis. She reported nasal and sinus congestion with difficulty laying flat and associated wheezing. There is longstanding history of obstructive and possible restrictive lung disease. She denied any history of asthma or cigarette smoking. She denied any headache or dizziness. No nausea, vomiting, or abdominal pain. No leg swelling, dysuria, hematuria or flank pain. Her initial assessment in the ED was remarkable for respiratory distress. She reported significant improvement after administration of bronchodilators. Her morbidities include Hyperlipidemia, Diabetes Mellitus Type 2, and osteoarthritis. Hospital Course Hospital Course: Patient was admitted for the management of acute exacerbation of chronic obstructive lung disease, she was treated with intravenous Solu-Medrol, bronchodilators with DuoNeb and antibiotic. She has very severe COPD despite continuous intravenous antibiotic for 5 days she continues to wheeze audibly the steroid was transitioned to p.o. prednisone in the last few days. Patient is wanting to be discharged back to the assisted living facility where she came from. She probably need to stay a few more days in the hospital but she is ready to go back. Medications were adjusted, she was taken off many of the potential [employer] depressants that could worsen her respiratory status especially the benzodiazepines, Xanax the facility should not give any more Xanax because she has very severe lung disease Physical Exam Vital Signs: Temp Pulse Resp BP Pulse Ox 97.6 F 85 20 131/59 H 97 06/25/17 12:21 06/25/17 12:21 06/25/17 12:21 06/25/17 12:21 06/25/17 12:21 Intake & Output 06/24/17 06/25/17 06/26/17 06:59 06:59 06:59 Intake Total 2956 1184 Output Total 600 1900 Balance 2356 -716 Weight 81.1 kg 79.5 kg General appearance: PRESENT: no acute distress Eye exam: PRESENT: PERRLA Respiratory exam: PRESENT: wheezes Cardiovascular exam: PRESENT: +S1, +S2 GI/Abdominal exam: PRESENT: soft Neurological exam: PRESENT: alert, CN II-XII grossly intact Results Laboratory Results: 06/22/17 22:30 06/22/17 22:30 Impressions: Chest X-Ray 06/18/17 00:07 IMPRESSION: No acute cardiopulmonary findings. 2011 [employer] [facility] [employer]- All Rights Reserved Chest/Abdomen CTA 06/18/17 01:26 IMPRESSION: No acute cardiopulmonary findings. No pulmonary embolus. Moderate hiatal hernia. Chronic elevation of the right hemidiaphragm.
== END 2017-06-25 18:00 | disposition short-term general hospital (02) | DRG 192 ==
LOC: ER 23:54 → EH 06-18 06:36 → 4S 06-19 12:09
PROVIDERS: ADMIT Internal Medicine; ATTEND Internal Medicine
PROC: 3E0234Z Introduction of Serum, Toxoid and Vaccine into Muscle, Percutaneous Approach (ICD-10-PCS; principal; 2017-06-18)
DX: J44.1 Chronic obstructive pulmonary disease with (acute) exacerbation (principal); J40 Bronchitis, not specified as acute or chronic; E11.9 Type 2 diabetes mellitus without complications; M19.90 Unspecified osteoarthritis, unspecified site; E78.5 Hyperlipidemia, unspecified; Z90.710 Acquired absence of both cervix and uterus; Z91.040 Latex allergy status; J30.2 Other seasonal allergic rhinitis; R09.02 Hypoxemia
CPT/HCPCS: 36415; 71046; 71275; 80053; 82803; 83605; 83880; 85025; 85610; 85730; 87040; 87070; 87077; 87205; 87804; 93005; 93010; 94640; 96374; 99285; J1650; J2930; J3490; J7030; J7512; J7620; S0119

== ENCOUNTER 2017-10-05 19:07 | Emergency (ER) | payer MEDICARE, MEDICAID ==
[2017-10-05] MEDS ORDERED: METHYLPREDNISOLONE INJ 125 MG/2 ML SDV IV ONE (19:24)
[2017-10-05] MEDS ORDERED: IPRATROPIUM/ALBUTEROL 0.5-2.5 MG/3 ML AMPUL NEB ONE ×3 (19:24→20:47)
--- NOTE | 2017-10-05 19:29 | ER Document Report ---
ED Respiratory Problem - General Chief Complaint: Respiratory Distress Stated Complaint: RESPIRATORY DISTRESS Time Seen by Provider: 10/05/17 19:14 Notes: Patient is a 77-year-old female that comes by EMS from [facility] for chief complaint of difficulty breathing, she states she has had worsening congestion, cough, cold symptoms with worsening yellow sputum production for the past 4 days. EMS reports she was 88% on room air, she does not wear oxygen at home. She is unsure of fever. She states that today it became very hard to breathe and she began coughing until she threw up. She denies lower extremity swelling or chest pain. She denies hemoptysis or hematemesis. She does have a history of recurrent bronchitis, is on albuterol, denies smoking history or diagnosed asthma. 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 TRAVEL OUTSIDE OF THE [place] IN LAST 30 DAYS: No - Related Data Allergies/Adverse Reactions: latex Allergy (Intermediate, Verified 10/21/16 14:42) Rash with itching Adhesive Tape Adverse Reaction (Severe, Uncoded 10/21/16 14:42) Severe Rash with Itching (Scarred) Past Medical History - General Information source: Patient - Social History Smoking Status: Never Smoker Frequency of alcohol use: None Drug Abuse: None Lives with: Correction Family History: Reviewed & Not Pertinent - Past Medical History Cardiac Medical History: Reports: Hx Hypercholesterolemia Denies: Hx Atrial Fibrillation, Hx Congestive Heart Failure, Hx Coronary Artery Disease, Hx Heart Attack, Hx Hypertension, Hx Peripheral Vascular Disease , Hx Heart Murmur Pulmonary Medical History: Reports: Hx COPD Denies: Hx Asthma, Hx Bronchitis, Hx Pneumonia, Hx Tuberculosis Neurological Medical History: Denies: Hx Cerebrovascular Accident, Hx Seizures Endocrine Medical History: Denies: Hx Graves' Disease, Hx Hyperthyroidism, Hx Hypothyroidism Renal/ Medical History: Denies: Hx Peritoneal Dialysis GI Medical History: Denies: Hx Hepatitis, Hx Hiatal Hernia, Hx Ulcer Musculoskeltal Medical History: Reports Hx Arthritis - Spinal, Denies Hx Fibromyalgia, Denies Hx Muscular Dystrophy Psychiatric Medical History: Reports: Hx Dementia Denies: Hx Depression Traumatic Medical History: Denies: Hx Fractures Infectious Medical History: Denies: Hx Hepatitis Past Surgical History: Reports: Hx Cardiac Surgery - open heart, Hx Hysterectomy , Hx Tonsillectomy. Denies: Hx Appendectomy, Hx Bowel Surgery, Hx Section, Hx Cholecystectomy, Hx Coronary Artery Bypass Graft, Hx Gastric Bypass Surgery, Hx Herniorrhaphy, Hx Mastectomy, Hx Open Heart Surgery, Hx Pacemaker, Hx Tubal Ligation - Immunizations Hx Diphtheria, Pertussis, Tetanus Vaccination: Yes Hx Pneumococcal Vaccination: 05/29/11 Review of Systems - Review of Systems Constitutional: See HPI EENT: See HPI Cardiovascular: See HPI Respiratory: See HPI Gastrointestinal: No symptoms reported Genitourinary: No symptoms reported Female Genitourinary: No symptoms reported Musculoskeletal: No symptoms reported Skin: No symptoms reported Hematologic/Lymphatic: No symptoms reported Neurological/Psychological: No symptoms reported Physical Exam - Vital signs Vitals: Pulse Ox 95 10/05/17 19:19 - General General appearance: Appears well, Alert In distress: None - HEENT Head: Normocephalic, Atraumatic Eyes: Normal Conjunctiva: Normal Eyelashes: Normal Pupils: PERRL Nasal: Normal Mouth/Lips: Normal Mucous membranes: Normal Pharynx: Normal Neck: Normal - Respiratory Respiratory status: Tachypnea - Mild tachypnea, no labored breathing or overt distress Breath sounds: Decreased air movement, Wheezing - Wheezing bilaterally, scattered rhonchi also noted in the left lung faulkner, no rales - Cardiovascular Rhythm: Regular. No: Tachycardia Heart sounds: Normal auscultation, S1 appreciated, S2 appreciated - Abdominal Inspection: Normal Distension: No distension Tenderness: Nontender. No: Tender, Guarding - Back Back: Normal, Nontender. No: CVA tenderness - Neurological Neuro grossly intact: Yes Cognition: Normal Orientation: AAOx4 [place] Coma Scale Eye Opening: Spontaneous [place] Coma Scale Verbal: Oriented [place] Coma Scale Motor: Obeys Commands [place] Coma Scale Total: 15 Speech: Normal Cranial nerves: Normal Cerebellar coordination: Normal Motor strength normal: LUE, RUE, LLE, RLE Additional motor exam normals: Equal coil strapper Sensory: Normal - Psychological Associated symptoms: Normal affect, Normal mood - Skin Skin Temperature: Warm Skin Moisture: Dry Skin Color: Normal Course - Re-evaluation Re-evalutation: On initial examination patient with minimal tachypnea, notable wheezes throughout lung faulkner, no rales, a few rhonchi on the left side. On reevaluation she has improved, will give magnesium and additional treatments. She is not hypoxic here on 2 L nasal cannula, she has no signs of respiratory distress. Chest x-ray unremarkable, no new findings, CBC, chemistry, venous blood gas, urinalysis all are unremarkable. Presentation consistent with bronchitis. Patient has had bronchitis with wheezing in the past. On reevaluation of wheezing has resolved, she still has an occasional congested cough, no tachypnea, she is well-appearing. Patient ambulated without any difficulty, lowest oxygen saturation obtained was 93% while ambulating. Patient rechecked again, she states she is feeling great, no wheezing, no signs of distress. Because she ambulated so well, patient will be discharged home after details were discussed and options were discussed. Patient will be treated with antibiotics for productive cough, prednisone, provided with inhaler and spacer, discussed return precautions in detail, patient states satisfaction and agreement. - Vital Signs Vital signs: Temp Pulse Resp BP Pulse Ox 98.8 F 20 137/56 H 95 10/05/17 19:47 10/06/17 04:01 10/06/17 04:01 10/06/17 04:01 - Laboratory Result Diagrams: 10/05/17 19:32 10/05/17 19:32 Laboratory results interpreted by me: 10/05/17 10/05/17 10/06/17 19:32 19:32 00:04 RDW 14.2 H Glucose 123 H Urine Glucose (UA) 50 H Urine Ketones 20 H Discharge - Discharge Clinical Impression: Wheezing, Productive cough, Bronchitis Condition: Stable Disposition: HOME, SELF-CARE Additional Instructions: Your workup does not show any concerning findings, your evaluation is consistent with bronchitis, because of your productive cough we are covering you with doxycycline antibiotic. Take the prednisone as prescribed, use albuterol as prescribed, follow-up in the next 2-3 days with your provider. Return immediately for any concerning or worsening symptoms fever of 100.4 or greater, or any other concerning or worsening symptoms. Prescriptions: Albuterol Sulfate [Proair HFA Inhalation Aerosol 8.5 gm MDI] 2 puff IH Q4H PRN # 1 mdi PRN Reason: Doxycycline Hyclate 100 mg PO BID #14 capsule Prednisone 60 mg PO DAILY #15 tablet
--- NOTE | 2017-10-05 19:56 | RADIOLOGY REPORT (SQ) ---
EXAM DESCRIPTION: CHEST SINGLE VIEW COMPLETED DATE/TIME: 10/05/2017 7:44 pm REASON FOR STUDY: bed 7 db COMPARISON: 06/18/2017 EXAM PARAMETERS: NUMBER OF VIEWS: One view. TECHNIQUE: Single frontal radiographic view of the chest acquired. RADIATION DOSE: NA LIMITATIONS: None. FINDINGS: LUNGS AND PLEURA: Elevation of the right hemidiaphragm. No acute infiltrate or effusion. MEDIASTINUM AND HILAR STRUCTURES: There is the suggestion of a paraesophageal hiatal hernia. Calcifi ed mediastinal nodes. HEART AND VASCULAR STRUCTURES: Heart normal in size. Normal vasculature. BONES: No acute findings. HARDWARE: Sternotomy wires. OTHER: No other significant finding. IMPRESSION: A paraesophageal hiatal hernia with no acute cardiopulmonary finding. TECHNICAL DOCUMENTATION: JOB ID: [id number] [employer]- All Rights Reserved Reading location - IP/workstation name: [email or web address]
[2017-10-05 20:00] LABS: HEMATOCRIT 39.1 % (36.0-47.0); HEMOGLOBIN 12.9 g/dL (12.0-15.5); MEAN CORPUSCULAR HEMOGLOBIN 29.7 pg (27.0-33.4); MEAN CORPUSCULAR HGB CONC 33.1 g/dL (32.0-36.0); MEAN CORPUSCULAR VOLUME 90 fl (80-97); PLATELET COUNT 235 10^3/uL (150-450); RED BLOOD COUNT 4.35 10^6/uL (3.72-5.28); RED CELL DISTRIBUTION WIDTH 14.2 % (11.5-14.0); WHITE BLOOD COUNT 8.5 10^3/uL (4.0-10.5)
[2017-10-05 20:02] LABS: VENOUS BLOOD BASE EXCESS 0.7 mmol/L; VENOUS BLOOD HCO3 25.7 mmol/L (20-32); VENOUS BLOOD PCO2 42.8 mmHg (35-63); VENOUS BLOOD PH 7.4 (7.30-7.42)
[2017-10-05 20:22] LABS: ALANINE AMINOTRANSFERASE 23 U/L (9-52); ALBUMIN 4.1 g/dL (3.5-5.0); ALKALINE PHOSPHATASE 84 U/L (38-126); ANION GAP 14 (5-19); ASPARTATE AMINO TRANSFERASE 32 U/L (14-36); BILIRUBIN,DIRECT 0.2 mg/dL (0.0-0.4); BILIRUBIN,TOTAL 0.2 mg/dL (0.2-1.3); BLOOD UREA NITROGEN 17 mg/dL (7-20); CARBON DIOXIDE 29 mmol/L (22-30); CHLORIDE 99 mmol/L (98-107); CREATINE KINASE 47 U/L (30-135); GLUCOSE 123 mg/dL (75-110); POTASSIUM 4.2 mmol/L (3.6-5.0); SODIUM 141.6 mmol/L (137-145); TOTAL PROTEIN 6.7 g/dL (6.3-8.2)
[2017-10-05 20:24] LABS: ABSOLUTE MONOCYTES # (MANUAL) 0.9 10^3/uL (0.1-1.4); ABSOLUTE NEUTROPHILS# (MANUAL) 4.5 10^3/uL (1.7-8.2); BASOPHILS % (MANUAL) 0 % (0-2); EOSINOPHILS % (MANUAL) 2 % (0-6); LYMPHOCYTES % (MANUAL) 35 % (13-45); MONOCYTES % (MANUAL) 10 % (3-13); SEGMENTED NEUTROPHILS % (MAN) 53 % (42-78); TOTAL CELLS COUNTED 100
[2017-10-05 20:25] LABS: ANISOCYTOSIS SLIGHT; OVALOCYTES SLIGHT; PLATELET COMMENT ADEQUATE
[2017-10-05 20:37] LABS: CREATINE KINASE MB 0.69 ng/mL (<4.55)
[2017-10-05 20:38] LABS: TROPONIN I < 0.012 ng/mL
[2017-10-05] MEDS: MAGNESIUM SULFATE/D5W 1 GM/100 ML RTUPB IV SCH ×2 (21:01→22:06)
[2017-10-06 00:24] LABS: APPEARANCE,URINE CLEAR; BILIRUBIN,URINE NEGATIVE (NEGATIVE); COLOR,URINE YELLOW; GLUCOSE, URINE 50 mg/dL (NEGATIVE); KETONES,URINE 20 mg/dL (NEGATIVE); LEUKOCYTE ESTERASE,URINE NEGATIVE (NEGATIVE); NITRITE,URINE NEGATIVE (NEGATIVE); PROTEIN,URINE NEGATIVE (NEGATIVE); URINE SPECIFIC GRAVITY 1.015; UROBILINOGEN,URINE NEGATIVE mg/dL (<2.0)
[2017-10-06] MEDS ORDERED: DOXYCYCLINE HYCLATE 100 MG TABLET PO ONE (03:45)
[2017-10-06] MEDS ORDERED: ALBUTEROL SULFATE HFA (90 MCG/PUFF) 8 GM MDI (1 MDI/ER DISP) IH ONE (04:01)
--- NOTE | 2017-10-06 07:41 | EKG REPORT ---
SEVERITY:- ABNORMAL ECG - SINUS RHYTHM PROBABLE LEFT ATRIAL ABNORMALITY BORDERLINE R WAVE PROGRESSION, ANTERIOR LEADS BORDERLINE T ABNORMALITIES, ANT-LAT LEADS : Confirmed by: Lewis Spencer MD 06-Oct-2017 07:40:26
[2017-10-06 09:37] VITALS: BP 129/61
== END 2017-10-06 09:35 | disposition home or self-care (01) ==
LOC: ER 19:07
DX: J40 Bronchitis, not specified as acute or chronic (principal); R06.2 Wheezing; E78.00 Pure hypercholesterolemia, unspecified; Z91.040 Latex allergy status; Z90.710 Acquired absence of both cervix and uterus
CPT/HCPCS: 93005; 94640 ×2; 99285; 96375; 96365; 96366; 36415; 87040; 82553; 82550; 85025; 80053; 81001; 84484; 82803; 71045; 93010; A9270 ×2; J2930; J3475; J3490; J7620

== ENCOUNTER 2017-11-05 10:34 | Emergency (ER) | payer MEDICARE, MEDICAID ==
--- NOTE | 2017-11-05 10:40 | ER Document Report ---
ED General - General Stated Complaint: COUGH Time Seen by Provider: 11/05/17 10:39 Mode of Arrival: Medic Information source: Patient TRAVEL OUTSIDE OF THE [place] IN LAST 30 DAYS: No - HPI Notes: 77-year-old female presents via EMS from [facility] living her complaints of left-sided chest pain, pressure and tightness cough for the last 2 weeks reports episodes of chest pain lasts for a few minutes and they go away , denies radiation of pain. Pain as cramping for chest pain" denies any chest tightness, chest pressure, radiation of pain to arm shoulder back etc. denies any squeezing sensation of chest. denies worse with movements, does happen at rest. chest pain is 8 out of 10. Reports nonproductive cough. Has not taken any [id number] medications besides given Tylenol every morning. Which did not relieve her pain. Denies any fevers, reports chills. Denies a history of COPD. Denies fevers, chills,palpitations, dyspnea, nausea, vomiting, diarrhea, abdominal pain, hematuria,blurred vision, double vision, loss of vision, speech changes, LH, dizziness, syncope, headaches, ST, neck pain, weakness, bowel or bladder dysfunction, saddle anesthesia, numbness or tingling in bilateral upper or lower extremities equally, muscle paralysis, weakness in bilateral upper or lower extremities equally or rash. Denies IV drug use. - Related Data Allergies/Adverse Reactions: latex Allergy (Intermediate, Verified 10/21/16 14:42) Rash with itching Adhesive Tape Adverse Reaction (Severe, Uncoded 10/21/16 14:42) Severe Rash with Itching (Scarred) Past Medical History - General Information source: Patient, Emergency Med Personnel, [facility] Records - Social History Smoking Status: Never Smoker Family History: Reviewed & Not Pertinent - Past Medical History Cardiac Medical History: Reports: Hx Hypercholesterolemia Denies: Hx Atrial Fibrillation, Hx Congestive Heart Failure, Hx Coronary Artery Disease, Hx Heart Attack, Hx Hypertension, Hx Peripheral Vascular Disease , Hx Heart Murmur Pulmonary Medical History: Reports: Hx COPD Denies: Hx Asthma, Hx Bronchitis, Hx Pneumonia, Hx Tuberculosis Neurological Medical History: Denies: Hx Cerebrovascular Accident, Hx Seizures Endocrine Medical History: Reports: Hx Diabetes Mellitus Type 2. Denies: Hx Graves' Disease, Hx Hyperthyroidism, Hx Hypothyroidism Renal/ Medical History: Denies: Hx Peritoneal Dialysis GI Medical History: Denies: Hx Hepatitis, Hx Hiatal Hernia, Hx Ulcer Musculoskeltal Medical History: Reports Hx Arthritis - Spinal, Denies Hx Fibromyalgia, Denies Hx Muscular Dystrophy Psychiatric Medical History: Reports: Hx Dementia Denies: Hx Depression Traumatic Medical History: Denies: Hx Fractures Infectious Medical History: Denies: Hx Hepatitis Past Surgical History: Reports: Hx Cardiac Surgery - open heart, Hx Hysterectomy , Hx Tonsillectomy. Denies: Hx Appendectomy, Hx Bowel Surgery, Hx Section, Hx Cholecystectomy, Hx Coronary Artery Bypass Graft, Hx Gastric Bypass Surgery, Hx Herniorrhaphy, Hx Mastectomy, Hx Open Heart Surgery, Hx Pacemaker, Hx Tubal Ligation - Immunizations Hx Diphtheria, Pertussis, Tetanus Vaccination: Yes Hx Pneumococcal Vaccination: 05/29/11 Review of Systems - Review of Systems Constitutional: See HPI EENT: No symptoms reported Cardiovascular: Chest pain Respiratory: See HPI Gastrointestinal: No symptoms reported Genitourinary: No symptoms reported Female Genitourinary: No symptoms reported Musculoskeletal: No symptoms reported Skin: No symptoms reported Hematologic/Lymphatic: No symptoms reported Neurological/Psychological: No symptoms reported -: Yes All other systems reviewed and negative Physical Exam - Vital signs Vitals: Temp Pulse Resp BP Pulse Ox 98.5 F 94 18 136/57 H 93 11/05/17 10:39 11/05/17 10:39 11/05/17 10:39 11/05/17 10:39 11/05/17 10:39 - Notes Notes: PHYSICAL EXAMINATION: GENERAL: Well-appearing, well-nourished and in no acute distress. HEAD: Atraumatic, normocephalic. EYES: Pupils equal round and reactive to light, extraocular movements intact, conjunctiva are normal. ENT: Nares patent, oropharynx clear without exudates. Moist mucous membranes. NECK: Normal range of motion, supple without lymphadenopathy LUNGS: Breath sounds clear to auscultation bilaterally and equal. No wheezes rales or rhonchi. reproducible right and left mid tenderness on palpation, same chest pain that brought pt into the ER. no step-off noted. HEART: Regular rate and rhythm without murmurs ABDOMEN: Soft, nontender, nondistended abdomen. No guarding, no rebound. No masses appreciated. Female : deferred Musculoskeletal: Normal range of motion, no pitting or edema. No cyanosis. NEUROLOGICAL: Cranial nerves grossly intact. Normal speech, normal gait. Normal sensory, motor exams PSYCH: Normal mood, normal affect. SKIN: Warm, Dry, normal turgor, no rashes or lesions noted. Course - Re-evaluation Re-evalutation: 29-year-old female who presents for a cough that has been occurring for the last 2 weeks, patient was diagnosed with bronchitis 4 weeks ago, given an antibiotic which she felt better, cough started to come back again, has reproducible costochondritis bilaterally which patient states is the exact chest pain that she is referring to when she told EMS of her chest pain. Patient on reevaluation continues to deny any or heart pain. Chest x-ray negative for any acute findings. Chest pain started 2 weeks ago with 2 serial troponins negative, there is a low suspicion of RUPTURED ESOPHAGUS, PNEUMOTHORAX , PULMONARY EMBOLISM, ACUTE CORONARY SYNDROME, OR THORACIC AORTIC DISSECTION, thus I consider the discharge disposition reasonable. I have reevaluated this patient multiple times and no significant life threatening changes are noted. The patient and I have discussed the diagnosis and risks, and we agree with discharging home with close follow-up. Discussed taking antibiotic as directed with food, eat yogurt daily to prevent loose stool. Advised to splint while coughing to help with costochondritis, inspirometer given to encourage patient to take 10 deep breaths an hour, to cough at least twice an hour to prevent atelectasis rather pulmonary issues due to costochondritis. Take prednisone, Tessalon Perles and Ventolin inhaler we also discussed returning to the Emergency Department immediately if new or worsening symptoms occur. We have discussed the symptoms which are most concerning (e.g., bloody sputum, worsening pain or shortness of breath) that necessitate immediate return. The patient demonstrates decision making capacity and has verbalized an understanding of these risks to me. Based on this, the patient has chosen to follow-up as an outpatient. Usual chest pain return precautions reviewed. The patient states understanding and agreement with this plan. Follow-up with your primary care doctor within 24 hours. - Vital Signs Vital signs: Temp Pulse Resp BP Pulse Ox 98.6 F 76 16 112/66 94 11/05/17 17:50 11/05/17 17:50 11/05/17 17:50 11/05/17 17:50 11/05/17 17:50 - Laboratory Result Diagrams: 11/05/17 11:25 11/05/17 11:25 Laboratory results interpreted by me: 11/05/17 11/05/17 11:25 11:25 RDW 14.2 H Carbon Dioxide 35 H Discharge - Discharge Clinical Impression: Acute bacterial bronchitis, Acute costochondritis Condition: Stable Disposition: HOME, SELF-CARE Instructions: Bronchitis ([facility]), Bronchitis With Bronchospasm (Wheezing) ([facility]), Costochondritis ([facility]), Cough Suppressant & Expectorant Medications Additional Instructions: You were seen for symptoms most consistent with bronchitis. This can take up to 12 weeks to fully resolve. This is generally due to a viral infection. Please follow-up with your primary doctor in the next 2-3 days. Return if you develop worsening cough, vomiting, fever >100.4, pass out, begin coughing blood, or have any other symptoms that are concerning to you. Please use the medications prescribed today as directed. Prescriptions: Benzonatate [Tessalon Perles 100 mg Capsule] 100 mg PO Q8HP PRN #20 capsule PRN Reason: Albuterol Sulfate [Ventolin Hfa] 1 - 2 puff IH Q4 PRN #1 hfa.aer.ad PRN Reason: Clarithromycin [Biaxin 500 mg Tablet] 1 tab PO Q12 #20 tab Prednisone [Deltasone 20 mg Tablet] 3 tab PO DAILY 5 Days #15 tablet Referrals: RUSS TAN MD [ACTIVE STAFF] - Follow up tomorrow
[2017-11-05] MEDS ORDERED: NITROGLYCERIN 0.4 MG/TAB 25 TAB/BOTTLE SL ONE (10:57)
[2017-11-05] MEDS ORDERED: ASPIRIN 81 MG TABLET, CHEWABLE PO ONE (10:57)
[2017-11-05] MEDS ORDERED: IPRATROPIUM/ALBUTEROL 0.5-2.5 MG/3 ML AMPUL NEB ONE (11:06)
[2017-11-05 11:39] LABS: ABSOLUTE BASOPHILS # (AUTO) 0.1 10^3/uL (0.0-0.2); ABSOLUTE EOSINOPHILS # (AUTO) 0.3 10^3/uL (0.0-0.6); ABSOLUTE LYMPHOCYTES (AUTO) 3.2 10^3/uL (0.5-4.7); ABSOLUTE MONOCYTES (AUTO) 0.8 10^3/uL (0.1-1.4); ABSOLUTE NEUT (AUTO) 5.9 10^3/uL (1.7-8.2); BASOPHILS % (AUTO) 0.6 % (0-2); HEMATOCRIT 37.6 % (36.0-47.0); HEMOGLOBIN 12.3 g/dL (12.0-15.5); LYMPHOCYTES % (AUTO) 31.2 % (13-45); MEAN CORPUSCULAR HEMOGLOBIN 29.4 pg (27.0-33.4); MEAN CORPUSCULAR HGB CONC 32.6 g/dL (32.0-36.0); MEAN CORPUSCULAR VOLUME 90 fl (80-97); MONOCYTES % (AUTO) 7.5 % (3-13); PLATELET COUNT 264 10^3/uL (150-450); RED BLOOD COUNT 4.17 10^6/uL (3.72-5.28); RED CELL DISTRIBUTION WIDTH 14.2 % (11.5-14.0); SEGMENTED NEUTROPHILS % (AUTO) 57.7 % (42-78); TOTAL CELLS COUNTED % (AUTO) 100 %; WHITE BLOOD COUNT 10.3 10^3/uL (4.0-10.5)
[2017-11-05 12:03] LABS: ALANINE AMINOTRANSFERASE 21 U/L (9-52); ALBUMIN 3.8 g/dL (3.5-5.0); ALKALINE PHOSPHATASE 63 U/L (38-126); ANION GAP 9 (5-19); ASPARTATE AMINO TRANSFERASE 21 U/L (14-36); BILIRUBIN,DIRECT 0.2 mg/dL (0.0-0.4); BILIRUBIN,TOTAL 0.2 mg/dL (0.2-1.3); BLOOD UREA NITROGEN 14 mg/dL (7-20); C-REACTIVE PROTEIN 5.8 mg/L (<10.0); CALCIUM 8.6 mg/dL (8.4-10.2); CARBON DIOXIDE 35 mmol/L (22-30); CHLORIDE 98 mmol/L (98-107); CREATINE KINASE 50 U/L (30-135); GLUCOSE 105 mg/dL (75-110); TOTAL PROTEIN 6.3 g/dL (6.3-8.2)
[2017-11-05 12:11] LABS: TROPONIN I < 0.012 ng/mL
--- NOTE | 2017-11-05 12:12 | RADIOLOGY REPORT (SQ) ---
EXAM DESCRIPTION: CHEST SINGLE VIEW COMPLETED DATE/TIME: 11/05/2017 11:44 am REASON FOR STUDY: left sided chest pain COMPARISON: 10/05/2017. NUMBER OF VIEWS: One view. TECHNIQUE: Single frontal radiographic view of the chest acquired. LIMITATIONS: None. FINDINGS: LUNGS AND PLEURA: Chronic elevation right hemidiaphragm. Clear lungs. MEDIASTINUM AND HILAR STRUCTURES: Stable contours. Previous median sternotomy with grossly intact wi res. Hiatal hernia. HEART AND VASCULAR STRUCTURES: Heart normal in size. Normal vasculature. BONES: Osteopenic. HARDWARE: None in the chest. OTHER: No other significant finding. IMPRESSION: Stable chest without acute or suspicious abnormality. TECHNICAL DOCUMENTATION: JOB ID: [id number] [employer]- All Rights Reserved Reading location - IP/workstation name: [email or web address]
[2017-11-05 13:19] LABS: APPEARANCE,URINE SLIGHTLY-CLOUDY; BILIRUBIN,URINE NEGATIVE (NEGATIVE); COLOR,URINE YELLOW; GLUCOSE, URINE NEGATIVE (NEGATIVE); KETONES,URINE NEGATIVE (NEGATIVE); LEUKOCYTE ESTERASE,URINE NEGATIVE (NEGATIVE); NITRITE,URINE NEGATIVE (NEGATIVE); PROTEIN,URINE NEGATIVE (NEGATIVE); URINE SPECIFIC GRAVITY 1.018; UROBILINOGEN,URINE NEGATIVE mg/dL (<2.0)
[2017-11-05 18:05] VITALS: BP 112/66
== END 2017-11-05 17:50 | disposition home or self-care (01) ==
LOC: ER 10:34
DX: J20.8 Acute bronchitis due to other specified organisms (principal); B96.89 Other specified bacterial agents as the cause of diseases classified elsewhere; J44.0 Chronic obstructive pulmonary disease with (acute) lower respiratory infection; R05 Cough; M94.0 Chondrocostal junction syndrome [Tietze]; E11.9 Type 2 diabetes mellitus without complications; Z91.040 Latex allergy status
CPT/HCPCS: 94640; 99284; 36415; 82553; 82550; 83735; 85025; 86140; 80053; 81001; 84484; 71045; A9270 ×2; J7620